=== PATIENT | male | born 1960 | race Caucasian/White ===

== ENCOUNTER 2017-06-27 05:12 | Day surgery (SDC) | payer MEDICAID ==
[~2017-06-27] VITALS: Ht 172.7 cm; Wt 77.1 kg
--- NOTE | ~2017-06-27 | OP ---
PATIENT NAME: GLENN CAT MEDICAL RECORD: [id number] :56 LOCATION:D[facility] ADMISSION DATE: SURGEON: ADRIANO HIGH DPM DATE OF OPERATION: 06/27/2017 PREOPERATIVE DIAGNOSIS: Ganglion cyst, left medial ankle. POSTOPERATIVE DIAGNOSIS: Ganglion cyst, left medial ankle. PROCEDURE: Excision of Ganglion cyst, left foot medial ankle. HEMOSTASIS: Left ankle tourniquet at 250 mmHg. ANESTHESIA: Local with IV sedation utilizing lidocaine and Marcaine plain, approximately 8 mL total. PATHOLOGY: Specimen sent for gross micro identification. PREOPERATIVE DETAILS: The patient was taken to the OR, placed on the operating table in supine position. This was followed by induction of general anesthesia and infiltration of local anesthetic. The left extremity was then prepped and draped in the usual aseptic technique followed by exsanguination of extremity and inflation of tourniquet. A 15 blade was used to create a 3 cm linear incision over the anterior medial aspect of the left ankle. The incision deepened down through subcutaneous tissue. Careful dissection was carried down to the deeper tissue where the ganglion cyst was visualized just medial to the anterior tibialis. Upon freeing the cystic material, it was noted that it was carrying up underneath the anterior tibialis and lateral to the anterior tibialis. It was freed and removed. A curette was used to rough the area to try to scar in to prevent recurrence. The wound was flushed. The wound was closed in layers utilizing 4-0 Rapide. The subcutaneous tissues were repaired with 4-0 Rapide and the skin was closed with 4-0 Rapide in a subcuticular technique followed by Dermabond, Adaptic, 4 x 4 and Conform. We used to dress the wound followed by Shaji wrap. Tourniquet was deflated. POSTOPERATIVE DETAILS: The patient tolerated the procedure well and left the OR with vital signs stable and vascular status at preoperative levels. The patient was transferred to recovery per anesthesia in stable condition. 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
[~2017-06-27 05:12] MED LIST: BEE POLLEN PO; CENTRUM MEN'S1 EACH PO; COCONUT OIL PO; FISH OIL 1,0001 CA1 PO; GINSENG PO; GLUCOSAMINE HC500 MG PO; SAW PALMETTO450 MG PO
[2017-06-27 08:44] VITALS: BP 148/88; Ht 172.7 cm; Wt 77.1 kg
--- NOTE | 2017-06-27 13:05 | NUR ---
1305--PT COMPLAINS OF PAIN RATES PAIN 02/12. TRAMADOL 50MG TABLET GIVEN PO FOR PAIN. PRESCRIPTION FOR TRAMADOL CALLED IN TO [facility] AT BEDSIDE. FRANK REYNA
--- NOTE | 2017-06-27 13:20 | NUR ---
1320--DISCHARGE INSTRUCTIONS GIVEN, PT VERBALIZES UNDERSTANDING. PT OFF UNIT VIA BRAD. FRANK REYNA
== END 2017-06-27 13:20 | disposition home or self-care (01) ==
LOC: D.OPS 05:12 → D.PAN 07:45 → D.OPS 09:15
DX: M67.472 Ganglion, left ankle and foot (principal); Z01.812 Encounter for preprocedural laboratory examination